=== PATIENT | male | born 1965 | race Caucasian/White ===

== ENCOUNTER 2017-02-26 20:15 | Emergency (ER) | payer MEDICARE, OTHER ==
[~2017-02-26] VITALS: Ht 162.6 cm; Wt 63.6 kg
[~2017-02-26 20:15] MED LIST: AMLO2.5T78 PO; BENZTROPINE PO; DIVA125T14 PO; LEVO330T PO; NASONEX NASAL; RISP1TAB3 PO
[2017-02-26 20:22] VITALS: Ht 162.6 cm; Wt 63.6 kg
[2017-02-26] MEDS ORDERED: TRIA15CR55 TOP (20:56)
--- NOTE | 2017-02-26 21:19 | ERD ---
ER Documentation Chief Complaint Date/Time DATE: 02/26/17 TIME: 21:12 Chief Complaint rash to left and right side of body since yesterday denies fever HPI 52 year old male patient with a past medical history of mental retardation presents to the ED complaining of rash on the right and left side of the armpit that occurred yesterday after swimming. Landlord and supervisor [employer] was with patient at this time and stated that patient may have been allergic to the chlorine. Denies any itchiness. Denies any pain. Denies any fever, nausea, chest pain, shortness of breath, wheezing, nausea, vomiting, abdominal pain. Denies any new use of soaps, detergents. Denies any exposure to pets or insects. Denies any lip swelling or tongue swelling. ROS All systems reviewed and are negative except as per history of present illness. Medications Home Meds Active Scripts Triamcinolone Acetonide (Triamcinolone Acetonide) 0.1% - 15 Gm Cream.gm., 1 APPLIC TOP BID, #1 TUB Prov:GAY BUENROSTRO PA-C 02/26/17 Reported Medications Divalproex Sodium* (Depakote*) 125 Mg Tablet.dr, 125 MG PO QID 09/20/13 Risperidone* (Risperidone*) 1 Mg Tablet, 1 MG PO TID 09/20/13 Levocarnitine* (Levocarnitine*) 330 Mg Tablet, 330 MG PO DAILY 09/20/13 [Nasonex] No Conflict Check, 50 MCG NASAL BID 09/20/13 [Benztropine] No Conflict Check, 2 MG PO BID 09/20/13 Amlodipine Besylate* (Amlodipine Besylate*) 2.5 Mg Tablet, 2.5 MG PO HS 09/20/13 Allergies Allergies: Coded Allergies: No Known Allergy (Unverified , 09/20/13) PMhx/Soc History of Surgery: Yes (BILATERAL INGUINAL HERNIA) Anesthesia Reaction: No Hx Neurological Disorder: Yes (MENTAL RETARDATION) Hx Respiratory Disorders: No Hx Cardiac Disorders: Yes (HTN) Hx Psychiatric Problems: Yes (SCHIZOPHRENIA) Hx Miscellaneous Medical Probl: No Hx Alcohol Use: No Hx Substance Use: No Hx Tobacco Use: No Smoking Status: Never smoker Physical Exam Vitals Vital Signs Date Time Temp Pulse Resp B/P Pulse Ox O2 Delivery O2 Flow Rate FiO2 02/26/17 20:22 98.6 98 18 156/87 96 Physical Exam Const: [id number], well-nourished. In no acute distress. Head: Atraumatic, normocephalic Eyes: Normal Conjunctiva without injection. No purulent discharge. PERRL. EOMI ENT: Normal external ear. Ear canal without erythema. Tympanic membrane pearly traore without effusion or bulging. Nasal canal clear with normal turbinates. Moist oropharynx without tonsillar exudates. Non-erythematous pharynx. Uvula midline. No drooling. No trismus. Neck: Full range of motion. No meningismus. No cervical lymphadenopathy. Resp: Clear to auscultation bilaterally. No wheezing, rhonchi, rales, or crackles. No accessory muscle use. No retractions. Cardio: Regular rate and rhythm. No murmurs, rubs or gallops. Abd: Soft, non tender, non distended. Normal bowel sounds. No palpable masses. No rebound tenderness. No guarding. Skin: No petechiae or purpura. Maculopapular rash noted on the bilateral axilla , worse on the left side with no vesicles. Slight erythema. No lymphatic streaking. No bleeding noted. Back: No midline tenderness. No CVA tenderness. Ext: No cyanosis, or edema. Neur: Awake and alert. Psych: Normal Mood and Affect Procedures/MDM This is a 52-year-old male patient with a past medical history of mental retardation presents the ED complaining of rash to his bilateral armpits. Patient is afebrile and nontoxic-appearing. Patient has normal vital signs. Patient likely has contact dermatitis. Low suspicion for scabies, SJS/TEN, erythema multiforme, sepsis, cellulitis, necrotizing fascitis, gangrene, meningococcemia or other emergent conditions. Discharge medications: Triamcinolone Follow up with primary care physician in 1-2 days referral to a director of sales marketing if symptoms do not improve. Instructed patient to return to the ED sooner for any worsening symptoms. Patient's questions were answered. Patient understood and agreed with discharge plan. Patient discharged stable. Departure Diagnosis: Primary Impression: Rash and other nonspecific skin eruption Condition: Stable Patient Instructions: Self-Care for Skin Rashes, Contact Dermatitis Referrals: HAYLIE CRABTREE (PCP) [facility] YOU HAVE RECEIVED A MEDICAL SCREENING EXAM AND THE RESULTS INDICATE THAT YOU DO NOT HAVE A CONDITION THAT REQUIRES URGENT TREATMENT IN THE EMERGENCY DEPARTMENT. FURTHER EVALUATION AND TREATMENT OF YOUR CONDITION CAN WAIT UNTIL YOU ARE SEEN IN YOUR DOCTORS OFFICE WITHIN THE NEXT 1-2 DAYS. IT IS YOUR RESPONSIBILITY TO MAKE AN APPOINTMENT FOR FOLOW-UP CARE. IF YOU HAVE A PRIMARY DOCTOR --you should call your primary doctor and schedule an appointment IF YOU DO NOT HAVE A PRIMARY DOCTOR YOU CAN CALL OUR PHYSICIAN REFERRAL HOTLINE AT IF YOU CAN NOT AFFORD TO SEE A PHYSICIAN YOU CAN CHOSE FROM THE FOLLOWING [facility] [address] [facility] [place]. [facility] [address] [facility]. [facility] [address] [facility] [facility] [address] [facility] [facility] [address] [facility]. [facility] [address] [facility]. [facility] YOU HAVE RECEIVED A MEDICAL SCREENING EXAM AND THE RESULTS INDICATE THAT YOU DO NOT HAVE A CONDITION THAT REQUIRES URGENT TREATMENT IN THE EMERGENCY DEPARTMENT. FURTHER EVALUATION AND TREATMENT OF YOUR CONDITION CAN WAIT UNTIL YOU ARE SEEN IN YOUR DOCTORS OFFICE WITHIN THE NEXT 1-2 DAYS. IT IS YOUR RESPONSIBILITY TO MAKE AN APPOINTMENT FOR FOLOW-UP CARE. IF YOU HAVE A PRIMARY DOCTOR --you should call your primary doctor and schedule and appointment IF YOU DO NOT HAVE A PRIMARY DOCTOR YOU CAN CALL OUR PHYSICIAN REFERRAL HOTLINE AT . IF YOU CAN NOT AFFORD TO SEE A PHYSICIAN YOU CAN CHOSE FROM THE FOLLOWING [facility] INSTITUTIONS[facility] [address] [place] [address] [facility] [address] [place] [address] [facility] [address] [place] [address] [facility]CIALT[facility] Additional Instructions: Call your primary care doctor TOMORROW for an appointment during the next 2-3 days for a referral to a director of sales marketing. See the doctor sooner or return here if your condition worsens before your appointment time. GAY BUENROSTRO PA-C Feb 26, 2017 21:19 GAY BUENROSTRO PA-C Feb 26, 2017 21:19
== END 2017-02-26 21:15 | disposition home or self-care (01) ==
LOC: FTE 20:15
DX: R21 Rash and other nonspecific skin eruption (principal); I10 Essential (primary) hypertension
CPT/HCPCS: 99283